=== PATIENT | male | born 1965 | race Caucasian/White ===

== ENCOUNTER → 2016-09-26 | Outpatient (CLI) | payer OTHER | END | disposition home or self-care (01) | LOC: PCVCCLINIC 14:20 | PROVIDERS: ATTEND Internal Medicine Cardiovascular Disease | DX: I10 Essential (primary) hypertension (principal); E78.00 Pure hypercholesterolemia, unspecified; E11.9 Type 2 diabetes mellitus without complications; Z79.84 Long term (current) use of oral hypoglycemic drugs | CPT/HCPCS: G0463 ==

== ENCOUNTER → 2016-10-31 | Outpatient (CLI) | payer OTHER | LOC: PCVCCLINIC 14:28 | PROVIDERS: ATTEND Internal Medicine Cardiovascular Disease | DX: I10 Essential (primary) hypertension (principal); R07.9 Chest pain, unspecified; E11.9 Type 2 diabetes mellitus without complications; R60.9 Edema, unspecified; Z79.899 Other long term (current) drug therapy; Z79.84 Long term (current) use of oral hypoglycemic drugs | CPT/HCPCS: G0463 ==

== ENCOUNTER → 2016-12-18 | Outpatient (CLI) | payer OTHER ==
[~2016-12-18] MED LIST: DIAZEPAM 10 MG TABLET. ONE; HEPARIN SODIUM 5,000 UNIT/ML VIAL for PCVC. ONE; IOHEXOL 350 MG/ML 100 ML VIAL. ONE; IOHEXOL 350 MG/ML 50 ML VIAL. ONE; IV NORMAL SALINE 1000ML BAG 1,000 ML ONE; LIDOCAINE 1% Multi-Dose 20 ML VIAL. ONE; MIDAZOLAM HCL/PF 2 MG/2 ML VIAL. ONE; NITROGLYCERIN PREMIX 250 ML IV ONE; VERAPAMIL 5 MG/2 ML VIAL. ONE; fentaNYL PF VIAL 100 MCG/2 ML VIAL ONE
--- NOTE | 2016-12-18 16:36 | PCVCINTER ---
APPROVED REPORT Patient Details Patient Status: Out-Patient Room #: 2 The patient is a 51 year-old male Event Personnel Rayshawn Edwards RT(R), Denise Zhao RT(R)(), Rajni Amanda RN Indication Chest pain Risk Factors Obesity, Hypercholesterolemia, Hypertension, Diabetes (Control: oral)Last Creatanine 0.7 Procedure Narrative The patient was brought electively to the Cardiac Catheterization Laboratory and was prepped and draped in a sterile manner. The right wrist, rt groin was infiltrated with 1% Lidocaine subcutaneous anesthesia. A 6 fr, 4fr sheath was inserted into the right radial, right femoral artery. Coronary angiography was performed using coronary diagnostic catheters. The right coronary system was accessed and visualized with a JR4 Diagnostic catheter. The left coronary system was accessed and visualized with a JL4 Diagnostic catheter. The left ventricle was accessed and visualized with a pigtail Diagnostic catheter. Left ventriculogram was performed in [place] projection. Hemostasis was obtained with manual pressure following sheath removal without any complications. The patient tolerated the procedure well and there were no complications associated with the procedure. There was no hematoma. Fluoro Time: 14.2 minutes Dose: 3477 mGy Contrast Type and Amount: omni 350 200ml Coronary Angiography The patient's coronary anatomy is right dominant. Diagnostic Cath Left Mainno flow-limiting lesions. LADModerate to large size caliber vessel, traveling down the anterior wall and wrapping around the apex. Mild to moderate discrete stenosis in mid segment, 30-40%. Diagonal 1Moderate size caliber vessel, with no flow-limiting lesions. CircumflexModerate size caliber vessel, with no flow-limiting lesions. [id number] stenosis at the ostium, 40%. AS8Gilndk, with no flow-limiting lesions. Right CoronaryLarge caliber vessel, dominant, with no flow-limiting lesions. R PDAModerate size caliber vessel, with no flow-limiting lesions. RPLVModerate size caliber vessel, with mild plaquing in the proximal segment, 30%. Left Ventriculography The left ventricle is normal in size with normal contractility. The left ventricular ejection fraction is estimated to be 55-60%. Hemodynamics The aortic pressure is 140/100 mmHg with a mean of 118 mmHg. The left ventricular pressure is 127/4 mmHg with a mean of 9 mmHg. Conclusion Mild to moderate coronary artery disease. Right dominant. Normal LV systolic function. Recommendations Medical Therapy
== END | disposition home or self-care (01) ==
LOC: PCVCINTER 09:02
PROVIDERS: ATTEND Internal Medicine Cardiovascular Disease
DX: I25.10 Atherosclerotic heart disease of native coronary artery without angina pectoris (principal); E78.00 Pure hypercholesterolemia, unspecified; I10 Essential (primary) hypertension; E11.9 Type 2 diabetes mellitus without complications; E66.9 Obesity, unspecified; Z68.43 Body mass index [BMI] 50.0-59.9, adult
CPT/HCPCS: 93458; C1751; C1769; C1894; J1644; J2250; J3010; J3490; J7030; Q9967

== ENCOUNTER → 2017-01-15 | Outpatient (CLI) | payer OTHER | END | disposition home or self-care (01) | LOC: PCVCCLINIC 15:18 | PROVIDERS: ATTEND Internal Medicine Cardiovascular Disease | DX: I25.10 Atherosclerotic heart disease of native coronary artery without angina pectoris (principal); R07.9 Chest pain, unspecified; I10 Essential (primary) hypertension; E78.00 Pure hypercholesterolemia, unspecified; R94.31 Abnormal electrocardiogram [ECG] [EKG]; E11.9 Type 2 diabetes mellitus without complications; Z79.82 Long term (current) use of aspirin; Z79.84 Long term (current) use of oral hypoglycemic drugs; Z79.899 Other long term (current) drug therapy | CPT/HCPCS: 93005; G0463 ==